=== PATIENT | female | born 1935 | race Caucasian/White ===

== ENCOUNTER 2016-12-20 19:35 | Emergency (ER) | payer MEDICARE, OTHER ==
--- NOTE | 2016-12-20 21:21 | ERNOTE ---
Lower Extremity HPI - General Lower Extremities Pain: hip: right - "numbness" Time Seen by Provider: 12/20/16 20:53 Source: patient Exam Limitations: no limitations - Immun/Allergies/Home Medications Immunizations: IMMUNIZATION HX Immunizations Up to Date Yes History of Influenza Vaccine No Hx Pneumococcal Vaccination No Allergies/Adverse Reactions: Allergies Allergy/AdvReac Type Severity Reaction Status Date / Time No Known Allergies Allergy Unverified 09/29/12 20:05 Home Medications: HOME MEDICATIONS Metoprolol Tartrate [Lopressor] 25 mg PO BID 09/29/12 [Last Taken 09/29/12 08:00 ] Lisinopril [Zestril] 20 mg PO DAILY #0 tablet 10/08/12 [Last Taken Unknown] Simvastatin [Zocor] 20 mg PO HS #0 tablet 10/08/12 [Last Taken Unknown] Cyanocobalamin (Vitamin B-12) [Vitamin B-12] 3,000 mcg PO DAILY 09/25/14 [Last Taken Unknown] - History of Present Illness Narrative: Pt states that she got out of her car earlier and had a little trouble controlling her right leg. She is able to walk and continued to walk and drive this afternoon. Occurred: this afternoon Location of Incident: other Method of Injury: Reports: twisted - at the time she noticed the problem but did not feel like there was any injury Associated Symptoms: Denies: snapping, popping sensation Other Injuries: Reports: none Subsequent Symptoms: Reports: sensory loss - subjective numbness in the right lateral iliac region Review of Systems - Review of Systems Constitutional: Absent: recent illness EYE: Present: no symptoms reported ENT: Present: no symptoms reported Respiratory: Absent: shortness of breath, cough Cardiology: Absent: chest pain, palpitations Gastrointestinal/Abdominal: Present: no symptoms reported Genitourinary: Present: no symptoms reported Musculoskeletal: Present: no symptoms reported Skin: Present: no symptoms reported Neurological: Present: weakness - right leg, numbness - right hip Endocrine: Present: no symptoms reported Hematologic/Lymphatic: Present: no symptoms reported Psych: Present: no symptoms reported - Patient's Past Medical History Patient History - Medical: Other Patient History - Cardiac/Respiratory: Hypertension, Hyperlipidemia, Myocardial Infarction, Peripheral Vascular Disease Patient History - Cancer: Melanoma, Skin Patient History - Surgical Procedures: Cataracts, Cardiac stent Patient History - Other: None - Social History Living Situations: alone Abuse History: No History of abuse Psych History: No pertinent hx Smoking Status: Current every day smoker Patient requests Smoking Cessation Consult: No Initiate information on Smoking Cessation: No Alcohol Use: rarely Drug Use: none - Immunizations Immunizations Up to Date: Yes Hx Pneumococcal Vaccination: No History of Influenza Vaccine: No Physical Exam - Physical Exam General Appearance: Present: wd/wn, alert, no apparent distress Neck: Present: normal inspection, supple Respiratory: Present: no respiratory distress, no accessory muscle use Extremity Exam: Present: normal inspection, non-tender, normal range of motion, no edema, other - both feet cool with vericositites. Unable to palpate pulses in right foot. Unable to find pulses with hand doppler. Cap refil 3-4 seconds Neurological Exam: Present: alert, oriented, normal mood/affect, no motor/ sensory deficits - Right leg strength slightly less than left but still 5/5 in all directions. Pt acts as though she has pain while doing muscle testing but she denies pain. Pt able to walk with assistance but does not have full stride on the right DTR: N=norm/NB=norm/brisk/A=abs/DD=dull/dimin/HC=hyperactive: Knee (R): Normal, Knee (L): Normal Skin Exam: Present: normal color - slighty ruborous, cool/dry ED Progress - Vital Signs Vital Signs: Vital Signs 12/20/16 19:35 Temperature 36.8 C Pulse Rate 81 Respiratory 24 H Rate Blood Pressure 174/72 O2 Sat by Pulse 98 Oximetry - X-Ray X-Ray #1 X-Ray: hip Interpretation: Interp. by me X-ray Comments: Right side: no fracture or dislocation. pelvis intact. - Progress/Reassessment Chief Complaint: Lower Extremity Pain/ Injury Progress Note-Subjective: 12/21/16 00:21 Called [facility], per patient request they no longer have vascular services. Called [facility] no vascular information engineer [facility]. Called [facility]: spoke with Dr. Ethel Galvan he would like the patient transferred [facility] and asks for a 5000 unit heparin bolus. There was no transfer center staff on the line after he hung up to finish transfer arrangements 12/21/16 00:42 Called the transfer center back to make transfer arrangements, spoke with Clementina , she spoke with the ED and they will accept for Dr. Galvan and consult him upon arrival. 12/21/16 03:12 Departure Clinical Impression: Peripheral vascular disease of lower extremity - Departure Disposition: [facility] Condition: Serious
[2016-12-21] MEDS ORDERED: HEPARIN SODIUM,PORCINE 5,000 UNITS/ML VIAL IV ONE (00:37)
[2016-12-21] MEDS ORDERED: HEPARIN SODIUM,PORCINE 5,000 UNITS/ML VIAL ONE (00:41)
[2016-12-21 00:48] VITALS: BP 138/76
--- OUTSIDE RECORDS SUMMARY | 2016-12-21 11:09 | XMS REPORT | Continuity of Care Document ---
:1935 Author Organization [facility] ([facility]) Address [address] [place] [address] Phone [phone] Care Team Providers Name Role Phone Britton Fulton Primary Care Provider [phone] Source Comments This disclosure is being made pursuant to the Care Everywhere program, applicable federal and state laws, and may not contain all informaitonavailable regarding this patient.[facility] ([facility]) Active Allergies and Adverse Reactions Allergen Noted Date Severity Reactions Comments Cotrim Double-Strength 02/11/2011 Urticaria (Hives) Current Medications Prescription Sig. Disp. Refills Start Date End Date Status aspirin 81 mg tablet Take 81 mg by Active mouth daily. lisinopril-hydrochlor Take 1 Tab by Active othiazide 20-12.5 mg mouth daily. per tablet simvastatin 20 mg Take 20 mg by Active tablet mouth every evening. furosemide 20 mg Take 1 Tab (20 90 Tab 3 12/11/2014 Active tablet mg total) by mouth daily metoPROLol tartrate Take 1 Tab (25 60 Tab 1 02/09/2015 Active 25 mg tablet mg total) by mouth 2 times daily potassium chloride Take 20 mEq by 12/21/2016 Discontinued (K-DUR, KLOR-CON M20) mouth 2 times 20 mEq tablet daily. Active Problems Problem Noted Date HTN (hypertension) 02/16/2011 Unspecified urinary incontinence 02/16/2011 Most Recent Encounters Date Type Specialty Providers Description 12/21/2016 Hospital Encounter Heart and Vascular Kaleb, Chief Comp: Patient MD Hilary Reported Reason For Visit 12/21/2016 Hospital Encounter Heart and Vascular [facility] Chief Comp: Patient MD Hilary Reported Reason For Visit 12/21/2016 Hospital Encounter Heart and Vascular [facility] Chief Comp: Patient MD Hilary Reported Reason For Visit 12/21/2016 Hospital Encounter Heart and Vascular [facility]aleb, Chief Comp: Patient MD Hilary Reported Reason For Visit 12/21/2016 Hospital Encounter Emergency Medicine Jerardo Luis Dx: Right leg MD Shirley numbness (Primary Tere Yee Dx) 12/21/2016 Telephone Srg Vascular Cole, Chief Comp: MD Doris Consultation 10/28/2016 Lab Requisition Pathology Lab Services, Dx: 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 Alcohol Use Drinks/Week oz/Week Comments Yes Occassional glass of wine. Last Filed Vital Signs Vital Sign Reading Time Taken Blood Pressure 157/73 12/21/2016 3:01 AM CDT Pulse 68 12/21/2016 2:46 AM CDT Temperature 36.7 C (98.1 F) 12/21/2016 2:46 AM CDT Respiratory Rate 18 12/21/2016 2:46 AM CDT Height - - Weight 61.689 kg (136 lb) 02/16/2011 2:00 PM CDT Body Mass Index - - Oxygen Saturation 99% 12/21/2016 3:01 AM CDT Plan of Care Health Maintenance Due Date Last Done Comments Hepatitis B Vaccine (1 of 3 - Primary Series) 1935 Tdap Vaccine 1944 Lipid Disorder Screening 1951 Td Vaccine 1951 Colonoscopy 1983 Zoster Vaccine 1993 Osteoporosis Screening (DXA Bone Density) 1998 Pneumococcal Vaccine (1 of 2 - PCV13) 1998 Influenza Vaccine: Seasonal (Season Ended) 2017 Results from Last [address] ANGIO ABD AORTA& BILAT ILIOFEM LOW EXT RUNOFF W/WO ([id number]) (12/21/2016 4:06 AM) Impressions Impression: 1. Extensive atherosclerotic disease, as detailed above. 2. Right atrial enlargement, incompletely imaged. Consider evaluation with echocardiography if this has not already been done. 3. Bilateral renal cysts. Left renal atrophy. Scarring in midpole of right kidney. This final report is in agreement with the critical and emergent preliminary findings reported by the radiology services manager distribution manager. Narrative Procedure: CT ANGIO ABD AORTA & BILAT ILIOFEM LOW EXT RUNOFF W/WO ([id number]) Indication:Reported right femoral arterial occlusion on external ultrasound. Right leg numbness and weakness. Technique: CT angiogram from abdominal aorta through the feet was performed with 100 cc of Isovue-370 IV contrast. 3D reconstructions were performed to better visualize the vascular anatomy. Comparison:None. Findings: Lower chest: Massively dilated right atrium, partially imaged. Abdominal Aorta:Patent, but with extensive atherosclerotic disease, plaque, calcification, ectasia and luminal irregularity. Celiac artery: High-grade ostial stenosis, reconstituted by SMA collaterals. Superior mesenteric artery: Patent. Inferior mesenteric artery: Patent. Right renal artery: Double and patent. Left renal artery: Double and patent. Right common iliac artery: Moderately diseased and calcified, but patent. Patent stent in distal vessel. Right external iliac artery: Mild proximal stenosis and mild to moderate distal stenosis, remainder is patent. Right internal iliac artery: Patent. Right common femoral artery: Patent. Left common iliac artery: Patent, but moderately diseased and calcified. Patent stent in distal vessel. Left external iliac artery: Patent. Left internal iliac artery: High-grade proximal stenosis. Left common femoral artery: Patent. Posterior calcified plaque. RIGHT Lower Extremity: Superficial femoral artery: Segmentally occluded at 6 cm distal to femoral bifurcation. Moderate to severe disease in mid and distal thigh. High-grade stenosis at adductor canal. Profunda femoral artery: High-grade ostial stenosis or occlusion, reconstitutes proximally. Popliteal artery: Patent, but small caliber. Tibioperoneal trunk: Patent. Anterior tibial artery: Patent, but attenuated distally (could be due to contrast bolus timing). Posterior tibial artery: Patent. Peroneal artery: Patent. LEFT Lower Extremity: Superficial femoral artery: Diseased proximally. Occludes 6 cm from femoral bifurcation. Reconstitutes at adductor canal. Profunda femoral artery: Patent. Popliteal artery: Reconstitutes at adductor canal, then patent. Tibioperoneal trunk: Patent. Anterior tibial artery: Patent. Crosses the ankle. Posterior tibial artery: Patent. Crosses the ankle. Peroneal artery: Ostial stenosis, then patent. Non vascular findings: The early arterial phase does not provide optimal imaging of the solid organs, bowel, or venous structures. Bibasilar linear atelectasis or scar. Right atrial enlargement, incompletely imaged. Extensive bilateral renal cysts, with right renal midpole parenchymal scarring. The left kidney is relatively atrophic. Nodular thickening of left adrenal. Probable duodenal diverticulum. Streak artifact from intramedullary oneil and screws in proximal left femur obscures adjacent structures. Marrow space in distal femurs and proximal tibia is shows patchy sclerosis and lucency. Degenerative changes in the spine. Anterolisthesis of L4 on L5. Procedure Note Osmar, Incoming Imaging Results - MonDecember 21, 2016 8:47 AM CDT Procedure: CT ANGIO ABD AORTA & BILAT ILIOFEM LOW EXT RUNOFF W/WO ([id number]) Indication: Reported right femoral arterial occlusion on external ultrasound. Right leg numbness and weakness. Technique: CT angiogram from abdominal aorta through the feet was performed with 100 cc of Isovue-370 IV contrast. 3D reconstructions were performed to better visualize the vascular anatomy. Comparison: None. Findings: Lower chest: Massively dilated right atrium, partially imaged. Abdominal Aorta: Patent, but with extensive atherosclerotic disease, plaque, calcification, ectasia and luminal irregularity. Celiac artery: High-grade ostial stenosis, reconstituted by SMA collaterals. Superior mesenteric artery: Patent. Inferior mesenteric artery: Patent. Right renal artery: Double and patent. Left renal artery: Double and patent. Right common iliac artery: Moderately diseased and calcified, but patent. Patent stent in distal vessel. Right external iliac artery: Mild proximal stenosis and mild to moderate distal stenosis, remainder is patent. Right internal iliac artery: Patent. Right common femoral artery: Patent. Left common iliac artery: Patent, but moderately diseased and calcified. Patent stent in distal vessel. Left external iliac artery: Patent. Left internal iliac artery: High-grade proximal stenosis. Left common femoral artery: Patent. Posterior calcified plaque. RIGHT Lower Extremity: Superficial femoral artery: Segmentally occluded at 6 cm distal to femoral bifurcation. Moderate to severe disease in mid and distal thigh. High-grade stenosis at adductor canal. Profunda femoral artery: High-grade ostial stenosis or occlusion, reconstitutes proximally. Popliteal artery: Patent, but small caliber. Tibioperoneal trunk: Patent. Anterior tibial artery: Patent, but attenuated distally (could be due to contrast bolus timing). Posterior tibial artery: Patent. Peroneal artery: Patent. LEFT Lower Extremity: Superficial femoral artery: Diseased proximally. Occludes 6 cm from femoral bifurcation. Reconstitutes at adductor canal. Profunda femoral artery: Patent. Popliteal artery: Reconstitutes at adductor canal, then patent. Tibioperoneal trunk: Patent. Anterior tibial artery: Patent. Crosses the ankle. Posterior tibial artery: Patent. Crosses the ankle. Peroneal artery: Ostial stenosis, then patent. Non vascular findings: The early arterial phase does not provide optimal imaging of the solid organs, bowel, or venous structures. Bibasilar linear atelectasis or scar. Right atrial enlargement, incompletely imaged. Extensive bilateral renal cysts, with right renal midpole parenchymal scarring. The left kidney is relatively atrophic. Nodular thickening of left adrenal. Probable duodenal diverticulum. Streak artifact from intramedullary oneil and screws in proximal left femur obscures adjacent structures. Marrow space in distal femurs and proximal tibia is shows patchy sclerosis and lucency. Degenerative changes in the spine. Anterolisthesis of L4 on L5. IMPRESSION Impression: 1. Extensive atherosclerotic disease, as detailed above. 2. Right atrial enlargement, incompletely imaged. Consider evaluation with echocardiography if this has not already been done. 3. Bilateral renal cysts. Left renal atrophy. Scarring in midpole of right kidney. This final report is in agreement with the critical and emergent preliminary findings reported by the radiology services manager distribution manager. DIFFERENTIAL (12/21/2016 3:01 AM) Component Value Range % Neutrophils-Auto Diff 66.0 % Neutrophils-Auto Diff 4380 1420-6322 /MM3 % Lymphocytes-Auto Diff 24.4 % Lymphocytes-Auto Diff 2999 339-7386 /MM3 % Monocytes-Auto Diff 8.0 % Monocytes-Auto Diff 530 130-860 /MM3 % Eosinophils-Auto Diff 0.3 % Eosinophils-Auto Diff 20(L) 40-390 /MM3 % Basophils 0.8 % Basophils-Auto Diff 50 10-136 /MM3 % Immature Granulocytes-Auto Diff 0.5 % Immature Granulocytes-Auto Diff 30 /MM3 Specimen Whole Blood CBC (COMPLETE BLOOD COUNT) (12/21/2016 3:01 AM) Component Value Range WBC Count 6.6 3.7-10.5 K/MM3 RBC Count 4.74 4.00-5.20 M/MM3 Hemoglobin 13.3 11.9-15.5 g/dL Hematocrit 40 35-47 % MCV (Mean Corpuscular Volume) 85 82-99 FL MCH (Mean Corpuscular Hemoglobin) 28 25-35 PG MCHC (Mean Corpuscular Hemoglobin Concentration) 33 32-36 % Platelet Count 124(L) 150-400 K/MM3 MPV (Mean Platelet Volume) 10.7 9.4-12.3 FL RBC Dist Width-STD 47.9(H) 36.4-46.3 FL RBC Distrib Width 15.4(H) 9.0-14.5 % Nucleated RBC 0 /100 WBC Specimen Whole Blood TYPE AND SCREEN (BLOOD TYPE(ABORH) AND RBC ANTIBODY SCREEN) (12/21/2016 3:01 AM ) Component Value Range ABORH O Positive Specimen Expiration Date 2016-12-24 Antibody Screen Negative Specimen Blood LACTIC ACID, WHOLE BLOOD ([facility]) (12/21/2016 3:01 AM) Component Value Range Lactic Acid, Whole Blood 1.0Comment: 0.5-2.0 mEq/L Glycolate, the principle toxic metabolite of ethylene glycol, can cause artifactual elevation of measured lactate. Specimen Whole Blood PTT (PARTIAL THROMBOPLASTIN TIME) (12/21/2016 3:01 AM) Component Value Range PTT 143(H) 22-31 secs Specimen Blood PT/INR (PROTHROMBIN TIME/INR) VENOUS (12/21/2016 3:01 AM) Component Value Range PT (Prothrombin Time) 12 9-12 secs INR 1.2 <4.0 Specimen Blood BASIC METABOLIC PANEL W/ CALCIUM (CHEM 8) (12/21/2016 3:01 AM) Component Value Range Sodium 140 135-145 mEq/L Potassium 3.9 3.5-5.0 mEq/L Chloride 104 95-107 mEq/L CO2 24 22-29 mEq/L BUN 18 10-20 mg/dL Creatinine 1.0Comment: 0.5-1.0 mg/dL Creatinine switched to enzymatic method on 11/30/2010.GFR equation switched to IDMS-traceable MDRD equation on 11/30/2010. Calculated GFR values are not valid in clinical settings where serum creatinine is changing. Glucose 93Comment: 65-99 mg/dL The Expert Committee on the Diagnosis and Classification of Diabetes has defined impaired fasting glucose as greater than or equal to 100 mg/dL but less than 126 mg/dL.(Diabetes Care 28 (Suppl 1)S41,2005) Calcium 8.7 8.5-10.5 mg/dL Anion Gap 12 <17 mEq/L Calculated GFR 53(L) >60 mL/min/1.73 m2 Specimen Blood CBC WITH DIFFERENTIAL (12/21/2016 3:01 AM) Specimen Whole Blood Narrative The following orders were created for panel order CBC WITH DIFFERENTIAL. Procedure Abnormality Status --------- ------ CBC (COMPLETE BLOOD COUNT)[[id number]] AbnormalFinal result DIFFERENTIAL[[id number]] AbnormalFinal result Please view results for these tests on the individual orders. DERMATOPATHOLOGY EXAM (10/26/2016 2:30 PM) Component Value Range Case Report Surgical Pathology Case: [id number] Authorizing Provider:[facility] Collected: 10/26/2016 02:30 PM Pathologist: Elan Ba MD Received:10/28/2016 01:41 PM Specimen:Skin, other, specify, R Hand Diagnosis Skin, right hand, shave biopsy: Epidermoid cyst. Clinical Information Tissue source/site: [id number] hand. Pertinent clinical history and findings: 1.3 cm subcutaneous cyst. Clinical differential diagnosis: Cyst. Gross Description A.Received in formalin, in a container labeled Talia Barnard, date of , and "R Hand", is a 1.5 x 1.1 cm wide unoriented fragment of juan skin that is 0.5 cm thick.The resection base is ink ed blue and the fragment is trisected to reveal a disrupted cyst.The cystic space is filled white, soft and lamellated material. Received separately in the container is a 1.5 x 1.1 x 0.1 cm fragme nt of the white soft material.The specimen is entirely submitted as follows: A1:Skin fragment, trisected A2:Separately received soft materia AJF/rls Microscopic Description Sections show a fragmented skin shave demonstrating a dermal-based, cystic structure containing lamellated keratinous material surrounded by thin squamous epithelial lining including a granular cell layer, transected at specimen base. Performed by:Abigail Choi MD, PhD, R2/rls I have personally reviewed this case and edited the report as necessary. Elan Ba MD Specimen Skin - Skin, other, specify
== END 2016-12-21 01:20 | disposition short-term general hospital (02) ==
LOC: ER 19:35
DX: I73.89 Other specified peripheral vascular diseases (principal); Z85.820 Personal history of malignant melanoma of skin; Z72.0 Tobacco use; I10 Essential (primary) hypertension; E78.5 Hyperlipidemia, unspecified; I25.2 Old myocardial infarction

== ENCOUNTER 2017-02-09 16:39 | Emergency (ER) | payer MEDICARE, OTHER ==
[2017-02-09 16:55] VITALS: BP 130/77
--- NOTE | 2017-02-09 18:03 | ERNOTE ---
Upper Extremity HPI - Narrative Date of Service: 02/09/17 - General Extremities Pain Location: forearm: left Time Seen by Provider: 02/09/17 17:44 Source: patient Exam Limitations: no limitations - Immun/Allergies/Home Medications Immunizations: IMMUNIZATION HX Immunizations Up to Date Yes History of Influenza Vaccine No Hx Pneumococcal Vaccination No Allergies/Adverse Reactions: Allergies Allergy/AdvReac Type Severity Reaction Status Date / Time No Known Allergies Allergy Unverified 09/29/12 20:05 Home Medications: HOME MEDICATIONS Lisinopril [Zestril] 20 mg PO DAILY #0 tablet 10/08/12 [Last Taken Unknown] Aspirin [Children's Aspirin] 81 mg PO DAILY 02/09/17 [Last Taken Unknown] Clopidogrel Bisulfate [Plavix] 37.5 mg PO DAILY 02/09/17 [Last Taken Unknown] Furosemide [Lasix] 20 mg PO 02/09/17 [Last Taken Unknown] Metoprolol Tartrate [Lopressor] 25 mg PO BID 02/09/17 [Last Taken Unknown] Ranitidine HCl [Zantac] 150 mg PO DAILY 02/09/17 [Last Taken Unknown] - History of Present Illness Narrative: Pt reports skin tear obtained from trimming brush. She is on Plavix and notes area bleeds when drsg not in place to area. Denies any wrist pain. Date (Duration): 02/08/17 Occurred: yesterday Location of Incident: home Loss of Consciousness: Reports: no loss of consciousness Modifying Factors - (Improves): Reports: other - dressings, pressure Review of Systems - Review of Systems Constitutional: Absent: fever, chills, fatigue Musculoskeletal: Absent: joint pain - no wrist pain, no FA pain Skin: Present: other - woudn to RFA - Patient's Past Medical History Patient History - Medical: Other Patient History - Cardiac/Respiratory: Hypertension, Hyperlipidemia, Myocardial Infarction, Peripheral Vascular Disease Patient History - Cancer: Melanoma, Skin Patient History - Surgical Procedures: Cataracts, Cardiac stent Patient History - Other: None - Social History Living Situations: home Abuse History: No History of abuse Psych History: No pertinent hx Smoking Status: Current every day smoker Have you smoked in the past 12 months: No Alcohol Use: rarely Drug Use: none - Immunizations Immunizations Up to Date: Yes Hx Pneumococcal Vaccination: No History of Influenza Vaccine: No Physical Exam - Physical Exam General Appearance: Present: wd/wn, alert, no apparent distress Respiratory: Present: no respiratory distress, normal breath sounds, lungs clear. Absent: rales, rhonchi, wheezing Extremity Exam: Present: non-tender - R. wrist, normal range of motion - R. wrist Skin Exam: Present: normal color, warm/dry, other - 0.25cm skin tear, scant bloody oozing to area, ecchymosis to R. FA ED Progress - Vital Signs Patient's Vital Signs:: I have reviewed the patient's vital signs. Vital Signs: Vital Signs 02/09/17 16:50 Temperature 36.5 C Pulse Rate 76 Respiratory 16 Rate Blood Pressure 130/77 O2 Sat by Pulse 95 Oximetry - Progress/Reassessment Chief Complaint: Upper Extremity Injury/Problem Progress:: Improved Procedures Date and Time: 02/09/17 17:50- Surgical applied to skin tear. Pt tolerated well._CY 02/09/17 18:10- Rechecked site, bleeding stopped. Mepilex border applied._CY Departure Clinical Impression: Skin tear of forearm without complication Qualifiers: Encounter type: initial encounter Laterality: right Qualified Code(s): S51.811A - Laceration without foreign body of right forearm, initial encounter - Departure Disposition: Home self-care Condition: Good Additional Instructions: Keep dressing in place for 1 week, then may remove. Keep dressing clean and dry After 1 week, may wash area with soap and water Seek re-evaluation if you develop warmth, redness or increased pain to the area Referrals: Stefanie Arredondo DO [Primary Care Provider] -
== END 2017-02-09 18:14 | disposition home or self-care (01) ==
LOC: ER 16:39
DX: S51.811A Laceration without foreign body of right forearm, initial encounter (principal); W45.8XXA Other foreign body or object entering through skin, initial encounter; W22.8XXA Striking against or struck by other objects, initial encounter; Y93.H2 Activity, gardening and landscaping; Y92.007 Garden or yard of unspecified non-institutional (private) residence as the place of occurrence of the external cause

== ENCOUNTER 2017-06-12 15:44 | Observation (INO) | payer MEDICARE, OTHER ==
[2017-06-12 16:48] LABS: Hematocrit 44.1 % (37.0-47.0); Hemoglobin 14.6 gm/dL (12.5-16.0); Mean Cell Volume 85.3 fl (78-100); Mean Corpuscular Hemoglobin 28.2 pg (27-31); Mean Corpuscular Hgb Conc 33.1 g/dl (32-36); Mean Platelet Volume 10.6 fl (6.0-9.5); Neutrophil # 6.2 K/mm3 (1.3-6.0); Neutrophil % 79.9 % (42-75.0); Platelet Count 183 K/mm3 (150-450); Red Blood Count 5.17 M/mm3 (4.2-5.4); Red Cell Distribution Width 16.1 % (11.5-14.0); White Blood Count 7.7 K/mm3 (4.0-10.5)
[2017-06-12 17:11] LABS: Troponin I 0.032 ng/ml (0.00-0.10)
[2017-06-12 17:16] LABS: Albumin * 3.7 gm/dl (3.4-5.0); Anion Gap 15.8 mmol/L (6.8-13.8); Bilirubin, Total 1.4 mg/dL (0.0-1.1); Ca. Corrected For Albumin 9.4 mg/dL (8.4-10.2); Calcium * 9.5 mg/dL (7.9-10.9); Carbon Dioxide 27.7 mmol/L (24-32.6); Potassium 3.5 mmol/L (3.4-4.6); Total Protein 7.5 gm/dL (6.2-8.2)
[2017-06-12] MEDS ORDERED: FUROSEMIDE 10 MG/ML VIAL IV ONE ×2 (17:22→19:04)
[2017-06-12] MEDS ORDERED: FUROSEMIDE 10 MG/ML VIAL ONE (17:28)
--- NOTE | 2017-06-12 17:37 | ERNOTE ---
Dyspnea - Date Date of Service: 06/12/17 - General Presenting Symptoms: shortness of breath Time Seen by Provider: 06/12/17 15:50 Source: patient Exam Limitations: no limitations - Immun/Allergies/Home Medications Immunizations: IMMUNIZATION HX Immunizations Up to Date Yes History of Influenza Vaccine Yes Hx Pneumococcal Vaccination Yes Allergies/Adverse Reactions: Allergies No Known Allergies Allergy (Verified 06/12/17 15:56) Home Medications: HOME MEDICATIONS Aspirin [Children's Aspirin] 81 mg PO DAILY 02/09/17 [Last Taken Unknown] Furosemide [Lasix] 20 mg PO DAILY 02/09/17 [Last Taken Unknown] Metoprolol Tartrate [Lopressor] 25 mg PO BID 02/09/17 [Last Taken Unknown] Ranitidine HCl [Zantac] 150 mg PO DAILY 02/09/17 [Last Taken Unknown] Lisinopril/Hydrochlorothiazide [Lisinopril-Hctz 20-12.5 mg Tab] 1 each PO DAILY 06/12/17 [Last Taken Unknown] Simvastatin 20 mg PO DAILY 06/12/17 [Last Taken Unknown] - History of Present Illness Narrative: Patient presents to the ED for trouble breathing. She has notices increased ankle swelling and trouble breathing throughout the day today. Getting worse throughout the day. No CP. SOB worse with exertion, better with rest. Has not seen anyone else for this. No cough or fever. No pleuritic pain. No recent changes in medications. Severity: moderate Treatment PARA OPERATOR: other - home meds Initiating event: Denies: upper resp illness, out of meds Frequency of episodes: Reports: no prior episodes Modifying Factors - (Improves): Reports: rest Modifying Factors (Worsens): Reports: activity Associated Symptoms-Dyspnea: Reports: ankle/leg swelling. Denies: fever/chills , chest pain/discomfort, cough, wheezing Prior Treatment: Denies: recently seen Review of Systems - Review of Systems Constitutional: Absent: fever Respiratory: Present: shortness of breath Cardiology: Absent: chest pain Gastrointestinal/Abdominal: Absent: abdominal pain All Other Systems: All systems neg except as marked - Patient's Past Medical History Patient History - Medical: Other Patient History - Cardiac/Respiratory: Hypertension, Hyperlipidemia, Myocardial Infarction, Peripheral Vascular Disease Patient History - Cancer: Melanoma, Skin Patient History - Surgical Procedures: Cataracts, Cardiac stent Patient History - Other: None LMP (females 10-50): post - Social History Living Situations: home Abuse History: No History of abuse Psych History: No pertinent hx Smoking Status: Current every day smoker Alcohol Use: none Drug Use: none - Immunizations Immunizations Up to Date: Yes Hx Pneumococcal Vaccination: Yes History of Influenza Vaccine: Yes Physical Exam - Physical Exam General Appearance: Present: alert, no apparent distress Head Exam: Present: normal inspection, no evidence of injury Eye Exam: Normal inspection: bilateral, PERRL: bilateral Ears, Nose, Throat: Present: normal ENT inspection Neck: Present: normal inspection, nontender Respiratory: Present: lungs clear, other - mild tachypnea. no wheezing. Cardiovascular/Chest: Present: regular rate, rhythm, normal peripheral pulses Gastrointestinal/Abdominal: Present: normal bowel sounds, nontender, nondistended, soft Back Exam: Absent: CVA tenderness (R), CVA tenderness (L) Extremity Exam: Present: normal inspection, other - bilateral edema. No DVT findings Neurological Exam: Present: alert, normal mood/affect, no motor/sensory deficits , other - generalized weakness noted Skin Exam: Present: normal color, warm/dry ED Progress - Results and Orders Patient's Lab Results:: I have reviewed the patient's lab results. - Vital Signs Patient's Vital Signs:: I have reviewed the patient's vital signs. Vital Signs: Vital Signs 06/12/17 06/12/17 06/12/17 15:51 16:30 16:52 Temperature 36.4 C L Pulse Rate 88 78 77 Respiratory 25 H 17 Rate Blood Pressure 154/92 106/83 O2 Sat by Pulse 100 97 Oximetry 06/12/17 06/12/17 17:05 17:26 Temperature Pulse Rate 80 77 Respiratory 17 15 Rate Blood Pressure 106/63 124/73 O2 Sat by Pulse 99 99 Oximetry - EKG EKG: NSR EKG read: Interp. by me EKG Comments: NSR PACs. Non-specific ST/T wave changes, no STEMI. - X-Ray X-Ray #1 X-Ray: chest Interpretation: Interp. by me X-ray Comments: CHF. No real-time radiology reads at this time. - Progress/Reassessment Chief Complaint: Dyspnea Progress Note-Subjective: 06/12/17 17:36 IV lasix given. Clinically doubt PE or aortic dissection. D/W Dr Weiss , will admit IV lasix and hold on CT chest at this time. Pt agreeable. Departure Clinical Impression: SOB (shortness of breath), CHF (congestive heart failure) - Departure Disposition: [facility] Condition: Stable
--- NOTE | 2017-06-12 19:01 | HP ---
Chief Complaint - Chief Complaint Date of Service: 06/12/17 Time of Service: 18:53 Chief Complaint: SOB History of Present Illness: This is an 81 y/o woman with fair memory at best who presented to the ED for trouble breathing. She noticed increased ankle swelling and trouble breathing throughout the day today. It worsened throughout the day. No CP, but the SOB was worse with exertion, better with rest. Has not seen anyone else for this. No cough or fever. No pleuritic pain. No recent changes in medications. Her last echo was 2 and 1/2 years ago. She continues to smoke. - Patient's Past Medical History Patient History - Cardiac/Respiratory: Hypertension, Hyperlipidemia, Myocardial Infarction, Peripheral Vascular Disease Patient History - Cancer: Melanoma, Skin Patient History - Surgical Procedures: Cataracts, Cardiac stent Patient History - Other: None LMP (females 10-50): post - Social History Living Situations: home Abuse History: No History of abuse Psych History: No pertinent hx Smoking Status: Current every day smoker Alcohol Use: none Drug Use: none - Immunizations Immunizations Up to Date: Yes Hx Pneumococcal Vaccination: Yes History of Influenza Vaccine: Yes Review Of Systems (GEN) - Review of Systems Generalized/Overall Review: Present: Weakness, Malaise EENTM: Present: No Symptoms Reported Respiratory: Present: Shortness of Breath Cardiac: Present: Edema Abdominal: Present: No Symptoms Reported Genitourinary: Present: No Symptoms Reported Musculoskeletal: Present: No Symptoms Reported Neurological: Present: No Symptoms Reported Skin: Present: No Symptoms Reported Endocrine: Present: No Symptoms Reported Misc: All systems neg except as marked Immunizations: IMMUNIZATION HX Immunizations Up to Date Yes History of Influenza Vaccine Yes Hx Pneumococcal Vaccination Yes Allergies/Adverse Reactions: Allergies Allergy/AdvReac Type Severity Reaction Status Date / Time No Known Allergies Allergy Verified 06/12/17 15:56 Home Medications: HOME MEDICATIONS Aspirin [Children's Aspirin] 81 mg PO DAILY 02/09/17 [Last Taken Unknown] Furosemide [Lasix] 20 mg PO DAILY 02/09/17 [Last Taken Unknown] Metoprolol Tartrate [Lopressor] 25 mg PO BID 02/09/17 [Last Taken Unknown] Ranitidine HCl [Zantac] 150 mg PO DAILY 02/09/17 [Last Taken Unknown] Lisinopril/Hydrochlorothiazide [Lisinopril-Hctz 20-12.5 mg Tab] 1 each PO DAILY 06/12/17 [Last Taken Unknown] Simvastatin 20 mg PO DAILY 06/12/17 [Last Taken Unknown] Exam - Exam Vital Signs: Vital Signs - Last Taken Selected Entries 06/12/17 06/12/17 17:26 17:58 Pulse Rate 77 77 Respiratory 15 Rate Blood Pressure 124/73 124/75 O2 Sat by Pulse 99 Oximetry Oxygen Delivery Nasal Cannula Method Oxygen Flow 2 Rate Constitutional: Present: Alert, Oriented x3, Cooperative, Other - poor memory ENT Exam: Present: normal ENT inspection, hearing grossly normal Neck: Present: normal inspection Respiratory: Present: rales Cardiovascular/Chest: Present: regular rate, rhythm, systolic murmur Abdomen: Present: Normal bowel sounds, soft, nontender, nondistended, no rebound tenderness, no hepatospenomegaly, no masses Extremity: Present: pedal edema Skin Exam: Present: normal color, no cyanosis, cool/dry Neurologic: Present: alert, oriented x 3 Appearance: Present: appropriate appearance, neat Eye contact: Present: cooperative Diagnostic Studies: Laboratory Results WBC 7.7 K/mm3 (4.0-10.5) 06/12/17 16:30 RBC 5.17 M/mm3 (4.2-5.4) 06/12/17 16:30 Hgb 14.6 gm/dL (12.5-16.0) 06/12/17 16:30 Hct 44.1 % (37.0-47.0) 06/12/17 16:30 MCV 85.3 fl (78-100) 06/12/17 16:30 MCH 28.2 pg (27-31) 06/12/17 16:30 MCHC 33.1 g/dl (32-36) 06/12/17 16:30 RDW 16.1 % (11.5-14.0) H 06/12/17 16:30 Plt Count 183 K/mm3 (150-450) 06/12/17 16:30 MPV 10.6 fl (6.0-9.5) H 06/12/17 16:30 Immature Gran % (Auto) 0.40 % (0.001-0.429) 06/12/17 16:30 Immature Gran # (Auto) 0.03 K/mm3 (0.000-0.0310) 06/12/17 16:30 Neutrophils % 79.9 % (42-75.0) H 06/12/17 16:30 Lymphocytes % 11.7 % (20-51) L 06/12/17 16:30 Monocytes % 7.2 % (0.0-9) 06/12/17 16:30 Eosinophils % 0.3 % (0.0-3.0) 06/12/17 16:30 Basophils % 0.5 % (0.0-1.0) 06/12/17 16:30 Nucleated RBC % 0.0 k/mm3 (0-1) 06/12/17 16:30 Neutrophils # 6.2 K/mm3 (1.3-6.0) H 06/12/17 16:30 Lymphocytes # 0.9 k/mm3 (1.5-3.5) L 06/12/17 16:30 Monocytes # 0.6 k/mm3 (0.0-1.0) 06/12/17 16:30 Eosinophils # 0.0 k/mm3 (0.0-0.7) 06/12/17 16:30 Absolute Basophils 0.0 k/mm3 (0.0-0.1) 06/12/17 16:30 D-Dimer 3.95 mg/L (0.19-0.49) H 06/12/17 16:30 Sodium 140 mmol/L (132-142) 06/12/17 16:30 Plasma Sodium 140 mmol/L (130-142) 06/12/17 16:30 Potassium 3.5 mmol/L (3.4-4.6) 06/12/17 16:30 Chloride 100 mmol/L (97-106) 06/12/17 16:30 Carbon Dioxide 27.7 mmol/L (24-32.6) 06/12/17 16:30 Anion Gap 15.8 mmol/L (6.8-13.8) H 06/12/17 16:30 BUN 19 mg/dL (3-23) 06/12/17 16:30 Creatinine 1.19 mg/dL (0.4-1.4) 06/12/17 16:30 Est GFR (Non-Af Amer) 46 mL/min (60-130) L 06/12/17 16:30 BUN/Creatinine Ratio 16.0 (9.0-21.6) 06/12/17 16:30 Random Glucose 94 mg/dL (70-110) 06/12/17 16:30 Lactic Acid, Venous 2.3 mmol/L (0.4-1.9) H* 06/12/17 16:30 Calcium 9.5 mg/dL (7.9-10.9) 06/12/17 16:30 Calcium Adj for Albumin 9.4 mg/dL (8.4-10.2) 06/12/17 16:30 Total Bilirubin 1.4 mg/dL (0.0-1.1) H 06/12/17 16:30 AST 31 U/L (0-48) 06/12/17 16:30 ALT 28 U/L (19-67) 06/12/17 16:30 Alkaline Phosphatase 107 U/L (50-170) 06/12/17 16:30 Troponin I 0.032 ng/ml (0.00-0.10) 06/12/17 16:30 B-Natriuretic Peptide 45764 pg/mL (5-550) H 06/12/17 16:30 Total Protein 7.5 gm/dL (6.2-8.2) 06/12/17 16:30 Albumin 3.7 gm/dl (3.4-5.0) 06/12/17 16:30 Assessment/Plan - Narrative Narrative: vAni. Repeat Echo. Follow labs. - Assessment/Plan (1) CHF (congestive heart failure) Problem: Acute (2) SOB (shortness of breath) Problem: Acute
[2017-06-12] MEDS: METOPROLOL TARTRATE 25 MG TABLET PO SCH (20:33)
[2017-06-13 06:37] LABS: Anion Gap 12.1 mmol/L (6.8-13.8); BUN/Creatinine Ratio 17.7 (9.0-21.6); Calcium * 8.9 mg/dL (7.9-10.9); Carbon Dioxide 31.9 mmol/L (24-32.6); Estimated Creat Clear 28.5
[2017-06-13] MEDS: METOPROLOL TARTRATE 25 MG TABLET PO SCH (08:23)
[2017-06-13] MEDS ORDERED: SIMVASTATIN 20 MG TABLET PO SCH ×2 (09:00→21:00)
[2017-06-13] MEDS ORDERED: FAMOTIDINE 20 MG TABLET PO SCH (09:00)
[2017-06-13] MEDS ORDERED: FUROSEMIDE 10 MG/ML VIAL IV SCH ×2 (09:00)
[2017-06-13] MEDS ORDERED: LISINOPRIL 20 MG TABLET PO SCH (09:00)
[2017-06-13] MEDS ORDERED: ASPIRIN 81 MG TAB.CHEW PO SCH (09:00)
[2017-06-13] MEDS ORDERED: HYDROCHLOROTHIAZIDE 25 MG TABLET PO SCH (09:00)
[2017-06-13] MEDS: POTASSIUM CHLORIDE 20 MEQ TABLET.SA PO SCH ×2 (10:34→14:08)
--- NOTE | 2017-06-13 13:37 | PN ---
Subjective - Date and Time Seen Date: 06/13/17 Time: 13:34 Subjective Narrative: A little better, but still SOB Objective - Review of Systems Generalized/Overall Review: Reports: Malaise EENTM: Reports: No Symptoms Reported Respiratory: Reports: Cough, Shortness of Breath Cardiac: Reports: Palpitations Abdominal: Reports: No Symptoms Reported Genitourinary Symptoms: Reports: No Symptoms Reported Musculoskeletal Complaints: Reports: No Symptoms Reported Neurological: Reports: No Symptoms Reported Skin: Reports: No Symptoms Reported Endocrine: Reports: No Symptoms Reported Misc: All systems neg except as marked - Vitals Vitals: Last Vital Signs Selected Entries 06/13/17 11:50 Temperature 36.8 C Temperature Temporal Artery Source Scan Pulse Rate 66 Respiratory 16 Rate Blood Pressure 146/74 Blood Pressure Sitting Position O2 Sat by Pulse 100 Oximetry Oxygen Delivery Room Air Method - Abnormal Lab Findings Abnormal Lab Findings: Abnormal Lab Results 06/12/17 06/13/17 06/13/17 Range/Units 19:30 05:40 10:17 Potassium 3.0 L (3.4-4.6) mmol/L Est GFR (Non-Af Amer) 49 L (60-130) mL/min Lactic Acid, Venous 2.3 H* (0.4-1.9) mmol/L Vitamin B12 Greater than 2000 H (193-986) pg/mL - Exam Constitutional: Present: Alert, Oriented x3, Cooperative, Well developed, Well nourished ENT Exam: Present: normal ENT inspection, hearing grossly normal Neck: Present: normal inspection Respiratory: Present: normal breath sounds, no respiratory distress Cardiovascular/Chest: Present: regular rate, rhythm, no chest tenderness Abdomen: Present: Normal bowel sounds, soft, nontender, nondistended, no hepatospenomegaly, no masses Extremity: Present: lower extremity edema Skin Exam: Present: normal color, warm/dry, no cyanosis Neurologic: Present: alert, oriented x 3 Appearance: Present: appropriate appearance, appropriate insight, neat Eye contact: Present: cooperative, good eye contact, normal speech Thoughts: Present: normal thought pattern Assessment/Plan Plan Narrative: fOLLO LABS. CONTINUE LASIX. - Problems/Diagnosis (1) CHF (congestive heart failure) Problem: Acute (2) SOB (shortness of breath) Problem: Acute
[2017-06-13] MEDS ORDERED: CALCIUM CARBONATE 500 MG TAB.CHEW PO PRN (15:05)
[2017-06-13 15:08] VITALS: BP 141/75
[2017-06-13] MEDS ORDERED: ALBUTEROL SULFATE 2.5 MG/0.5 ML VIAL.NEB IH PRN (15:21)
[2017-06-13] MEDS: MAGNESIUM OXIDE 400 MG TABLET PO SCH ×2 (15:22→15:59)
--- NOTE | 2017-06-13 16:49 | DS ---
(1) HFrEF (heart failure with reduced ejection fraction) Problem: Acute (2) Pulmonary arterial hypertension Problem: Chronic (3) Hypertension Problem: Acute Qualifiers: Hypertension type: essential hypertension Qualified Code(s): I10 - Essential (primary) hypertension (4) Femur fracture, left Diagnosis(s): LT peritrochanteric hip fracture - closed reduction and cephalo-medullary fixation of LT peritrochanteric femur fracture 09/2012. Problem: Inactive Qualifiers: Fracture type: closed Description of Stay: DATE OF ADMISSION: 06/12/17. DATE OF DISCHARGE: 06/13/17. DIAGNOSTICS: TTE. 06/13/17. Talia Is a 81-year-old WF with a history of HTN, CHF, severe pulmonary HTN, LT hip fracture [2012]who came into the ER due to sob difficulty in breathing, swelling in her lower extremities from last few days. She denies having any chest discomfort. CXR PA/lateral on 06/12/17 showed mild cardiomegaly, minimal pulmonary vascular cephalization and subtle interstitial thickening suggestive of mild CHF exacerbation. Significant labs: Troponin I 0.032, BNP 22978. EKG was nonacute. She was given furosemide 120 mg IV x1 with adequate diuresis and good urine output. Echocardiogram on 06/13/17: Mild concentric LVH with EF 34%; mod. global hypokinesis and mild dilatation of LV; severe biatrial enlargement RT > LT; severe TR with RVSP at 95 mm Hg; Trace PI; Mild MR. Based on the echocardiogram findings, the following medication changes were made : Carvedilol 3.125 mg twice a day, lisinopril 5 mg daily twice a day, furosemide 40 mg daily at noon, spironolactone 25 mg daily at noon. The following medications were discontinued: Lisinopril 20 mg daily, metoprolol 25 mg twice a day, furosemide 20 mg daily. May consider O2 at bedtime. Follow-up with PCP on 06/19/17. Procedures Performed: none Results and Findings: Laboratory Tests 06/12/17 16:30 WBC 7.7 Hgb 14.6 Hct 44.1 Plt Count 183 06/12/17 06/13/17 16:30 05:40 Plasma Sodium 140 142 Potassium 3.5 3.0 L Chloride 100 101 Carbon Dioxide 27.7 31.9 BUN 19 20 Creatinine 1.19 1.13 Est GFR (Non-Af Amer) 46 L 49 L Random Glucose 94 Lactic Acid, Venous 2.3 H Calcium Adj for Albumin 9.4 Total Bilirubin 1.4 H AST 31 ALT 28 Alkaline Phosphatase 107 Total Protein 7.5 Albumin 3.7 06/12/17 16:30 Troponin I 0.032 B-Natriuretic Peptide 54323 H Discharge Disposition: Home self care Disposition: Home self-care Condition: Undetermined Discharge Activity: Activity as tolerated Discharge Diet: Low salt, High Fiber Referrals: Stefanie Arredondo DO [Primary Care Provider] - Problem Oriented Discharge Instructions to Patient/Family: Heart Failure, Easy- to-Read Additional Patient Instructions (free text): NEW MEDS/NEW DOSES: 1. Lisinopril 5 mg twice a day. 2. Carvedilol 3.125 mg twice a day. 3. Furosemide 40 mg at noon. 4. Spironolactone 25 mg at noon. 5. Vitamin D3 2000 units at noon. 6. Tums 500 mg twice a day. MEDS DC'D: 1. Lisinopril 20 mg daily. 2. Metoprolol 25 mg twice a day 3. Furosemide 20 mg daily. 4. Tums 500 mg 4 times a day. Follow-up with Dr. Arredondo on 06/19/17 with CMP 2 hours done before visit. [facility] will call you tomorrow with follow up appointment. Weigh yourself daily in the morning. Call PCP/office a few gain more than 2-3 pounds in 1-2 days. Please give patient a list of high salt foods to avoid. Simvastatin should be taken with evening meal. [facility], please call and fax discharge information. Prescriptions (Any new or edited meds): Carvedilol [Coreg] 3.125 mg PO BID #60 tab Cholecalciferol (Vitamin D3) [Vitamin D] 2,000 unit PO DAILY@1200 #100 capsule Furosemide [Lasix] 40 mg PO DAILY@1200 #30 tablet Lisinopril 5 mg PO BID #60 tablet Spironolactone [Aldactone] 25 mg PO DAILY@1200 #30 tablet Complete Home Medications List: Complete Home Medication List: Aspirin [Children's Aspirin] 81 mg PO DAILY 02/09/17 Ranitidine HCl [Zantac] 150 mg PO DAILY 02/09/17 Albuterol Sulfate [Proair Hfa] 1 - 2 puff IH Q4H PRN 06/12/17 Simvastatin 20 mg PO DAILY 06/12/17 Calcium Carbonate [Tums] 500 mg PO BID PRN tab.chew 06/13/17 Carvedilol [Coreg] 3.125 mg PO BID #60 tab 06/13/17 Cholecalciferol (Vitamin D3) [Vitamin D] 2,000 unit PO DAILY@1200 #100 capsule 06/13/17 Furosemide [Lasix] 40 mg PO DAILY@1200 #30 tablet 06/13/17 Lisinopril 5 mg PO BID #60 tablet 06/13/17 Spironolactone [Aldactone] 25 mg PO DAILY@1200 #30 tablet 06/13/17 Amb Orders for Discharge: Comprehensive Metabolic Panel Time Frame: 06/19/17, Location: Determined By Patient
[2017-06-13] MEDS ORDERED: MIRTAZAPINE 15 MG TABLET PO SCH (21:00)
--- NOTE | 2017-06-19 12:32 | ECHO ---
This report is available in the EMR
== END 2017-06-13 17:49 | disposition home health service (06) ==
LOC: ER 15:44 → MS 17:30
PROVIDERS: ADMIT Allergy & Immunology; ATTEND Internal Medicine
DX: I50.23 Acute on chronic systolic (congestive) heart failure (principal); I10 Essential (primary) hypertension; E78.5 Hyperlipidemia, unspecified; I73.9 Peripheral vascular disease, unspecified; F17.210 Nicotine dependence, cigarettes, uncomplicated
CPT/HCPCS: 36415; 71020; 80048; 80053; 82607; 83605; 83880; 84484; 85025; 85379; 93005; 93306; 96374; 96376; 99285; G0378

== ENCOUNTER 2019-10-22 09:00 | Inpatient (IN) ==
[2019-10-22] MEDS ORDERED: FUROSEMIDE 10 MG/ML VIAL IV ONE (09:20)
[2019-10-22 09:50] LABS: Hematocrit 46.2 % (37.0-47.0); Hemoglobin 14.2 gm/dL (12.5-16.0); Mean Cell Volume 93.1 fl (78-100); Mean Corpuscular Hemoglobin 28.6 pg (27-31); Mean Corpuscular Hgb Conc 30.7 g/dl (32-36); Mean Platelet Volume 11.4 fl (8-12.5); Neutrophil # 14.4 K/mm3 (1.3-6.0); Neutrophil % 89.8 % (42-75.0); Platelet Count 130 K/mm3 (150-450); Red Blood Count 4.96 M/mm3 (4.2-5.4); Red Cell Distribution Width 15.9 % (11.5-14.0)
--- NOTE | 2019-10-22 09:53 | ERNOTE ---
Dyspnea - Date Date of Service: 10/22/19 - General Presenting Symptoms: shortness of breath, difficulty of breathing Time Seen by Provider: 10/22/19 09:08 Source: patient, EMS, EMS notes reviewed Exam Limitations: clinical condition - Immun/Allergies/Home Medications Immunizations: IMMUNIZATION HX Immunizations Up to Date No History of Influenza Vaccine No Hx Pneumococcal Vaccination No Allergies/Adverse Reactions: Allergies No Known Allergies Allergy (Verified 10/22/19 09:12) Home Medications: HOME MEDICATIONS Albuterol Sulfate [Proair Hfa] 1 - 2 puff INHALATION Q4H PRN 06/12/17 [Last Taken Unknown] mineral oil-hydrophil petrolat 1 applic TP BID #50 g 05/09/18 [Last Taken Unknown] triamcinolone acetonide 0.1 % topical ointment 1 applic TP BID #430 g 05/09/18 [Last Taken Unknown] furosemide 20 mg tablet 20 mg PO DAILY #30 tab 05/02/19 [Last Taken Unknown] aspirin 81 mg tablet,delayed release 81 mg PO DAILY #30 tab 05/22/19 [Last Taken Unknown] cholecalciferol (vitamin D3) 50 mcg (2,000 unit) capsule 2,000 unit PO DAILY #30 cap 05/22/19 [Last Taken Unknown] Lisinopril [Prinivil] 10 mg PO DAILY 10/22/19 [Last Taken Unknown] Spironolactone [Aldactone] 25 mg PO DAILY 10/22/19 [Last Taken Unknown] - History of Present Illness Narrative: patient presents to ed with c/o dyspnea, known hx of copd and chf, also c/o abdominal pain, patient for last 2 months has refused meds, remains a dnr Severity: moderate 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 Frequency of episodes: Reports: frequent episodes Modifying Factors - (Improves): Reports: nothing Modifying Factors (Worsens): Reports: nothing Associated Symptoms-Dyspnea: Reports: wheezing, leg/calf pain, ankle/leg swelling, dizziness, lightheadedness, weakness Review of Systems - Review of Systems Constitutional: Present: See HPI, weakness, fatigue, malaise EYE: Present: no symptoms reported ENT: Present: no symptoms reported Respiratory: Present: See HPI, shortness of breath, orthopnea, wheezing Cardiology: Present: See HPI, chest pain Gastrointestinal/Abdominal: Present: no symptoms reported Genitourinary: Present: no symptoms reported Musculoskeletal: Present: no symptoms reported Skin: Present: no symptoms reported Neurological: Present: no symptoms reported Endocrine: Present: no symptoms reported Hematologic/Lymphatic: Present: no symptoms reported Psych: Present: no symptoms reported All Other Systems: All systems neg except as marked Medical History (Last Reviewed 10/22/19 @ 09:12 by Charity Cm RN) Tobacco abuse (Chronic) Onset Date: 05/09/16 Systolic heart failure secondary to coronary artery disease (Chronic) Onset Date: 05/09/16 Pulmonary HTN (Chronic) Onset Date: 05/09/16 Severe per Cardiology. 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 Myocardial infarction of anterior wall (Chronic) Onset Date: 05/09/16 - PCI with RENNY to LAD anterior ST elevation PR Mild concentric left ventricular hypertrophy (LVH) (Chronic) Onset Date: 06/14/17 EF 34%, LA severely dilated, Bi-atrial enlargement, Rt atrium severely dilated, diastolic dysfunction, mild MR, RVSP 95 mm HG, Echo, FMCH 06/13/17 Hyperlipidemia (Chronic) Onset Date: Unknown GERD (gastroesophageal reflux disease) (Chronic) Onset Date: 05/09/16 Essential hypertension (Chronic) Onset Date: 05/07/17 Ischemic cardiomyopathy (Chronic) Onset Date: Unknown Echo EF .40 CAD (coronary artery disease) (Chronic) Onset Date: 05/09/16 Cataract Onset Date: Unknown Closed left ankle fracture Onset Date: Unknown Closed left femoral fracture Onset Date: 09/29/12 Encopresis Onset Date: Unknown Fracture of left radius Onset Date: Unknown (alone), unspecified part, closed Urge incontinence Onset Date: Unknown Surgical History: Surgical History (Last Reviewed 10/22/19 @ 09:12 by Charity Cm RN) Femoral oneil placement, left Onset Date: 09/30/12 Femoral-popliteal vascular bypass Onset Date: ~2005 Dr. Sukh Bernard of cardiac catheterization Onset Date: 09/25/14 Complex distal LAD occlusion s/p thrombolytic therapy, promus 2.5 x 16mm RENNY to mid-distal LAD with diffuse disease with DEMARCUS-II flow post-stent for salvage therapy, mildly elevated LVEDP. Hx of colonoscopy Onset Date: 05/18/07 Stent placement Onset Date: ~2005 Bilateral iliac stents Family History: Family History (Last Reviewed 10/22/19 @ 09:12 by Charity Cm RN) Brother Heart valve surgery Father , Old age No problems noted. Mother , Old age No problems noted. Daughter Heart valve problem Social History: (Last Reviewed 10/22/19 @ 09:12 by Charity Cm RN) Social History: Marital status: / lives independently: Yes current occupational status: retired Highest education level completed: high school graduate Service: No Tobacco: Smoking Status: Current every day smoker Alcohol: alcohol intake: current details: Some day - Occasionally wine Dietary Habits: caffeine: Yes caffeine comment: Every day Physical Exam - Physical Exam General Appearance: Present: moderate distress, anxious Head Exam: Present: normal inspection, no evidence of injury Eye Exam: Normal inspection: bilateral, PERRL: bilateral, EOMI: bilateral Ears, Nose, Throat: Present: normal ENT inspection Neck: Present: normal inspection, nontender, other - jvd Respiratory: Present: respiratory distress, accessory muscle use, decreased breath sounds, rales, rhonchi Cardiovascular/Chest: Present: tachycardia Gastrointestinal/Abdominal: Present: normal bowel sounds, nontender, nondistended, soft, no organomegaly Back Exam: Present: normal inspection, normal range of motion, no CVA tenderness, no vertebral tenderness Extremity Exam: Present: pedal edema Neurological Exam: Present: alert, oriented, normal mood/affect, no motor/sensory deficits Skin Exam: Present: normal color, warm/dry Lymphatic Exam: Present: no adenopathy Progress - Date and Time Seen: Date and Time: 10/22/19 12:24 condition unchanged, discussed case with dr mckeon , accepted for admission, patient remains a dnr - Results and Orders Patient's Lab Results:: I have reviewed the patient's lab results. - Vital Signs Patient's Vital Signs:: I have reviewed the patient's vital signs. Vital Signs: Vital Signs 10/22/19 09:09 10/22/19 09:26 10/22/19 09:31 Temperature 36.5 C Pulse Rate 101 H 100 100 Respiratory Rate 44 H 40 H Blood Pressure 156/62 H 161/80 H O2 Sat by Pulse Oximetry 77 L 94 10/22/19 09:36 10/22/19 09:41 Temperature Pulse Rate 99 98 Respiratory Rate 36 H Blood Pressure 161/80 H 158/86 H O2 Sat by Pulse Oximetry 94 - EKG EKG #1 EKG: NSR - X-Ray X-Ray #1 X-Ray: chest Interpretation: Discd w/ radiologist - congestive heart failure abdomen evidense of enteritis - Progress/Reassessment Chief Complaint: Dyspnea Plan - Plan Plan: to admit to hospital Departure Clinical Impression: CHF (congestive heart failure), Abdominal pain - Departure Disposition: Short Term Hospital Inpatient Condition: Serious Referrals: Denisse Barker MD [Primary Care Provider] -
[2019-10-22 09:59] LABS: ALT 33 U/L (19-67); AST 39 U/L (0-48); Albumin * 3.4 gm/dl (3.4-5.0); Alkaline Phosphatase * 95 U/L (50-170); Amylase * 67 U/L (25-115); Anion Gap 18.5 mmol/L (6.8-13.8); BUN/Creatinine Ratio 23.9 (9.0-21.6); Bilirubin, Total 0.9 mg/dL (0.0-1.1); Blood Urea Nitrogen 43 mg/dL (3-23); Ca. Corrected For Albumin 9.4 mg/dL (8.4-10.2); Calcium * 9.2 mg/dL (7.9-10.9); Carbon Dioxide 26.1 mmol/L (24-32.6); Chloride 107 mmol/L (97-106); Glucose * 108 mg/dL (70-110); Lipase 77 U/L (73-393); Potassium 3.6 mmol/L (3.4-4.6); Sodium 148 mmol/L (132-142); Total Protein 7.1 gm/dL (6.2-8.2)
[2019-10-22 10:04] LABS: Troponin I 0.402 ng/mL (0.00-0.10)
[2019-10-22 10:35] LABS: BNP * Greater than 35000 pg/mL (5-550)
[2019-10-22 11:53] LABS: Urine Appearance Slightly Cloudy (CLEAR); Urine Color Yellow
[2019-10-22 11:56] LABS: Urine Bilirubin Negative (NEGATIVE); Urine Blood 25 /ul (NEGATIVE); Urine Ketone Negative (NEGATIVE)
[2019-10-22 11:57] LABS: Urine Protein 30 mg/dL (NEGATIVE); Urine Urobilinogen Normal (NORMAL); Urine pH 5.5 pH (5.0-7.0)
[2019-10-22 11:58] LABS: Urine Bacteria TRACE; Urine Nitrite Negative (NEGATIVE); Urine RBC 0-5 /hpf (0-5); Urine WBC 0-5 /hpf (0-5)
[2019-10-22] MEDS ORDERED: MORPHINE SULFATE 2 MG/ML DISP.SYRIN IV ONE (11:59)
--- NOTE | 2019-10-22 14:32 | HP ---
Chief Complaint - Chief Complaint Date of Service: 10/22/19 Time of Service: 12:54 Chief Complaint: Shortness of breath History of Present Illness: 84-year-old female with a past medical history of congestive heart failure coronary artery disease, hypertension, hyperlipidemia, GERD, anterior wall CA, peripheral artery disease status post bilateral common artery stenting 2005, pulmonary hypertension, COPD, systolic congestive heart failure presents from the [place] with complaints of shortness of breath. She has not been taking her medications for the past 2 months because she felt she did not need to. The emergency department she was found to have hypoxia with an oxygen saturation of 77%, tachypnea with respiratory rate in the 30s and showed. Blood work is positive for hyponatremia 148, worsening renal function with GFR of 28, creatinine of 1.80, baseline creatinine is 1.2, baseline GFR is 45. She was also found to have a BNP of greater than 35,000 and troponin of 0.402 with no acute changes on EKG. ABG was positive for pH of 7.25, PCO2 39.1, PO2 83.1, bicarb of 16.9, O2 sat of 94.7. Chest x-ray is positive for acute congestive heart failure exacerbation, abdominal x-ray showed scattered air-fluid loops of large and small bowel with some scattered air-fluid levels no dilation of the small bowel overall findings probably represent viral enteritis, mild to moderate fecal retention. She is being admitted for CHF exacerbation. Patient is a DNR Medical History (Last Reviewed 10/22/19 @ 13:23 by Colleen Loving RN) Tobacco abuse (Chronic) Onset Date: 05/09/16 Systolic heart failure secondary to coronary artery disease (Chronic) Onset Date: 05/09/16 Pulmonary HTN (Chronic) Onset Date: 05/09/16 Severe per Cardiology. 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 Myocardial infarction of anterior wall (Chronic) Onset Date: 05/09/16 - PCI with RENNY to LAD anterior ST elevation CA Mild concentric left ventricular hypertrophy (LVH) (Chronic) Onset Date: 06/14/17 EF 34%, LA severely dilated, Bi-atrial enlargement, Rt atrium severely dilated, diastolic dysfunction, mild MR, RVSP 95 mm HG, Echo, FMCH 06/13/17 Hyperlipidemia (Chronic) Onset Date: Unknown GERD (gastroesophageal reflux disease) (Chronic) Onset Date: 05/09/16 Essential hypertension (Acute) Onset Date: 05/07/17 Ischemic cardiomyopathy (Chronic) Onset Date: Unknown Echo EF .40 CAD (coronary artery disease) (Chronic) Onset Date: 05/09/16 Cataract Onset Date: Unknown Closed left ankle fracture Onset Date: Unknown Closed left femoral fracture Onset Date: 09/29/12 Encopresis Onset Date: Unknown Fracture of left radius Onset Date: Unknown (alone), unspecified part, closed Urge incontinence Onset Date: Unknown Surgical History: Surgical History (Last Reviewed 10/22/19 @ 13:23 by Colleen Loving RN) Femoral oneil placement, left Onset Date: 09/30/12 Femoral-popliteal vascular bypass Onset Date: ~2005 Dr. Luz Hx of cardiac catheterization Onset Date: 09/25/14 Complex distal LAD occlusion s/p thrombolytic therapy, promus 2.5 x 16mm RENNY to mid-distal LAD with diffuse disease with DEMARCUS-II flow post-stent for salvage therapy, mildly elevated LVEDP. Hx of colonoscopy Onset Date: 05/18/07 Stent placement Onset Date: ~2005 Bilateral iliac stents Family History: Family History (Last Reviewed 10/22/19 @ 13:23 by Colleen Loving RN) Brother Heart valve surgery Father , Old age No problems noted. Mother , Old age No problems noted. Daughter Heart valve problem Social History: (Last Reviewed 10/22/19 @ 13:23 by Colleen Loving RN) Social History: Marital status: / lives independently: Yes current occupational status: retired Highest education level completed: high school graduate Service: No Tobacco: Smoking Status: Current every day smoker Alcohol: alcohol intake: current details: Some day - Occasionally wine Dietary Habits: caffeine: Yes caffeine comment: Every day Review Of Systems (GEN) - Review of Systems Generalized/Overall Review: Absent: Fever EENTM: Absent: Eye Pain Respiratory: Present: Shortness of Breath. Absent: Cough Cardiac: Present: Edema. Absent: Chest Pain Abdominal: Present: Abdominal Pain - Throughout entire abdomen Misc: All systems neg except as marked Immunizations: IMMUNIZATION HX Immunizations Up to Date No History of Influenza Vaccine No Hx Pneumococcal Vaccination No Allergies/Adverse Reactions: Allergies Allergy/AdvReac Type Severity Reaction Status Date / Time No Known Allergies Allergy Verified 10/22/19 13:23 Home Medications: HOME MEDICATIONS Albuterol Sulfate [Proair Hfa] 1 - 2 puff INHALATION Q4H PRN 06/12/17 [Last Taken Unknown] mineral oil-hydrophil petrolat 1 applic TP BID #50 g 05/09/18 [Last Taken Unknown] triamcinolone acetonide 0.1 % topical ointment 1 applic TP BID #430 g 05/09/18 [Last Taken Unknown] furosemide 20 mg tablet 20 mg PO DAILY #30 tab 05/02/19 [Last Taken Unknown] aspirin 81 mg tablet,delayed release 81 mg PO DAILY #30 tab 05/22/19 [Last Taken Unknown] cholecalciferol (vitamin D3) 50 mcg (2,000 unit) capsule 2,000 unit PO DAILY #30 cap 05/22/19 [Last Taken Unknown] Lisinopril [Prinivil] 10 mg PO DAILY 10/22/19 [Last Taken Unknown] Spironolactone [Aldactone] 25 mg PO DAILY 10/22/19 [Last Taken Unknown] Exam - Exam Vital Signs: Vital Signs - Last Taken Temp 36.1 C 10/22/19 13:11 Pulse 91 10/22/19 13:11 Resp 22 H 10/22/19 13:11 BP 140/74 10/22/19 13:11 Pulse Ox 95 10/22/19 13:11 Constitutional: Present: Alert, Cooperative, Elderly, Thin and frail ENT Exam: Present: hearing grossly normal Eye Exam: bilateral eye: normal inspection, EOMI Neck: Present: non-tender, supple. Absent: lymphadenopathy (R), lymphadenopathy (L) Back Exam: Present: normal inspection, no CVA tenderness Respiratory: Present: no respiratory distress, no accessory muscle use, crackles - Mild crackles in the left lung base, No wheezing Cardiovascular/Chest: Present: normal peripheral pulses, regular rate, rhythm, no murmur, edema - 2+ bilateral lower extremity pitting edema, left worse than right Peripheral Pulses: dorsalis-pedis (R): 1+, dorsalis-pedis (L): 1+ Abdomen: Present: Normal bowel sounds, soft, tender - Diffuse tenderness in all quadrants, distended Extremity: Present: lower extremity edema - 2+ bilateral lower extremity pitting edema, left worse than right Skin Exam: Present: normal color, warm/dry - Right lower extremity is warm to touch, cool/dry - Left lower extremity is cool to touch Neurologic: Present: alert, normal mood/affect Appearance: Present: appropriate appearance Eye contact: Present: cooperative Thoughts: Present: normal mood /affect Diagnostic Studies: Abnormal Lab Results 10/22/19 10/22/19 10/22/19 Range/Units 09:36 09:36 09:50 WBC 16.0 H (4.0-10.5) K/mm3 MCHC 30.7 L (32-36) g/dl RDW 15.9 H (11.5-14.0) % Plt Count 130 L (150-450) K/mm3 Immature Gran # (Auto) 0.06 H (0.000-0.0310) K/mm3 Neutrophils % 89.8 H (42-75.0) % Lymphocytes % 1.6 L (20-51) % Neutrophils # 14.4 H (1.3-6.0) K/mm3 Lymphocytes # 0.25 L (1.5-3.5) k/mm3 Monocytes # 1.3 H (0.0-1.0) k/mm3 HCO3 16.9 L (21.0-28.0) mmol/L Total CO2 18.1 L (19.0-24.0) mmol/L Base Excess -9.6 L (-2.0-3.0) mmol/L ABG pH 7.25 L (7.35-7.45) Sodium 148 H (132-142) mmol/L Plasma Sodium 148 H (130-142) mmol/L Chloride 107 H (97-106) mmol/L Anion Gap 18.5 H (6.8-13.8) mmol/L BUN 43 H (3-23) mg/dL Creatinine 1.80 H D (0.4-1.4) mg/dL Est GFR (Non-Af Amer) 28 L D (60-130) mL/min BUN/Creatinine Ratio 23.9 H (9.0-21.6) Troponin I 0.402 H* (0.00-0.10) ng/mL B-Natriuretic Peptide Greater than 22381 H (5-550) pg/mL Urine Protein (NEGATIVE) mg/dL Urine Blood (NEGATIVE) /ul 10/22/19 Range/Units 11:42 WBC (4.0-10.5) K/mm3 MCHC (32-36) g/dl RDW (11.5-14.0) % Plt Count (150-450) K/mm3 Immature Gran # (Auto) (0.000-0.0310) K/mm3 Neutrophils % (42-75.0) % Lymphocytes % (20-51) % Neutrophils # (1.3-6.0) K/mm3 Lymphocytes # (1.5-3.5) k/mm3 Monocytes # (0.0-1.0) k/mm3 HCO3 (21.0-28.0) mmol/L Total CO2 (19.0-24.0) mmol/L Base Excess (-2.0-3.0) mmol/L ABG pH (7.35-7.45) Sodium (132-142) mmol/L Plasma Sodium (130-142) mmol/L Chloride (97-106) mmol/L Anion Gap (6.8-13.8) mmol/L BUN (3-23) mg/dL Creatinine (0.4-1.4) mg/dL Est GFR (Non-Af Amer) (60-130) mL/min BUN/Creatinine Ratio (9.0-21.6) Troponin I (0.00-0.10) ng/mL B-Natriuretic Peptide (5-550) pg/mL Urine Protein 30 H (NEGATIVE) mg/dL Urine Blood 25 H (NEGATIVE) /ul Laboratory Results WBC 16.0 K/mm3 (4.0-10.5) H 10/22/19 09:36 RBC 4.96 M/mm3 (4.2-5.4) 10/22/19 09:36 Hgb 14.2 gm/dL (12.5-16.0) 10/22/19 09:36 Hct 46.2 % (37.0-47.0) 10/22/19 09:36 MCV 93.1 fl (78-100) 10/22/19 09:36 MCH 28.6 pg (27-31) 10/22/19 09:36 MCHC 30.7 g/dl (32-36) L 10/22/19 09:36 RDW 15.9 % (11.5-14.0) H 10/22/19 09:36 Plt Count 130 K/mm3 (150-450) L 10/22/19 09:36 MPV 11.4 fl (8-12.5) 10/22/19 09:36 Immature Gran % (Auto) 0.40 % (0.001-0.429) 10/22/19 09:36 Immature Gran # (Auto) 0.06 K/mm3 (0.000-0.0310) H 10/22/19 09:36 Neutrophils % 89.8 % (42-75.0) H 10/22/19 09:36 Lymphocytes % 1.6 % (20-51) L 10/22/19 09:36 Monocytes % 8.0 % (0.0-9) 10/22/19 09:36 Eosinophils % 0.0 % (0.0-3.0) 10/22/19 09:36 Basophils % 0.2 % (0.0-1.0) 10/22/19 09:36 Nucleated RBC % 0.0 k/mm3 (0-1) 10/22/19 09:36 Neutrophils # 14.4 K/mm3 (1.3-6.0) H 10/22/19 09:36 Lymphocytes # 0.25 k/mm3 (1.5-3.5) L 10/22/19 09:36 Monocytes # 1.3 k/mm3 (0.0-1.0) H 10/22/19 09:36 Eosinophils # 0.0 k/mm3 (0.0-0.7) 10/22/19 09:36 Absolute Basophils 0.0 k/mm3 (0.0-0.1) 10/22/19 09:36 pCO2 39.1 mmHg (32.0-45.0) 10/22/19 09:50 pO2 83.1 mmHg (83.0-108.0) 10/22/19 09:50 HCO3 16.9 mmol/L (21.0-28.0) L 10/22/19 09:50 Total CO2 18.1 mmol/L (19.0-24.0) L 10/22/19 09:50 Base Excess -9.6 mmol/L (-2.0-3.0) L 10/22/19 09:50 ABG pH 7.25 (7.35-7.45) L 10/22/19 09:50 ABG O2 Sat (Measured) 94.7 % (94.0-98.0) 10/22/19 09:50 Sodium 148 mmol/L (132-142) H 10/22/19 09:36 Plasma Sodium 148 mmol/L (130-142) H 10/22/19 09:36 Potassium 3.6 mmol/L (3.4-4.6) 10/22/19 09:36 Chloride 107 mmol/L (97-106) H 10/22/19 09:36 Carbon Dioxide 26.1 mmol/L (24-32.6) 10/22/19 09:36 Anion Gap 18.5 mmol/L (6.8-13.8) H 10/22/19 09:36 BUN 43 mg/dL (3-23) H 10/22/19 09:36 Creatinine 1.80 mg/dL (0.4-1.4) H D 10/22/19 09:36 Est GFR (Non-Af Amer) 28 mL/min (60-130) L D 10/22/19 09:36 BUN/Creatinine Ratio 23.9 (9.0-21.6) H 10/22/19 09:36 Random Glucose 108 mg/dL (70-110) 10/22/19 09:36 Calcium 9.2 mg/dL (7.9-10.9) 10/22/19 09:36 Calcium Adj for Albumin 9.4 mg/dL (8.4-10.2) 10/22/19 09:36 Total Bilirubin 0.9 mg/dL (0.0-1.1) 10/22/19 09:36 AST 39 U/L (0-48) 10/22/19 09:36 ALT 33 U/L (19-67) 10/22/19 09:36 Alkaline Phosphatase 95 U/L (50-170) 10/22/19 09:36 Troponin I 0.402 ng/mL (0.00-0.10) H* 10/22/19 09:36 B-Natriuretic Peptide Greater than 53594 pg/mL (5-550) H 10/22/19 09:36 Total Protein 7.1 gm/dL (6.2-8.2) 10/22/19 09:36 Albumin 3.4 gm/dl (3.4-5.0) 10/22/19 09:36 Amylase 67 U/L (25-115) 10/22/19 09:36 Lipase 77 U/L (73-393) 10/22/19 09:36 Urine Color Yellow 10/22/19 11:42 Urine Appearance Slightly cloudy (CLEAR) 10/22/19 11:42 Urine pH 5.5 pH (5.0-7.0) 10/22/19 11:42 Ur Specific [place] 1.020 SP.GR. (1.005-1.010) 10/22/19 11:42 Urine Protein 30 mg/dL (NEGATIVE) H 10/22/19 11:42 Urine Glucose (UA) Negative mg/dL (NEGATIVE) 10/22/19 11:42 Urine Ketones Negative mg/dL (NEGATIVE) 10/22/19 11:42 Urine Blood 25 /ul (NEGATIVE) H 10/22/19 11:42 Urine Nitrate Negative (NEGATIVE) 10/22/19 11:42 Urine Bilirubin Negative mg/dl (NEGATIVE) 10/22/19 11:42 Prot Sulfosalicylic Acd 1+ mg/dL (0) 10/22/19 11:42 Urine Urobilinogen Normal EU/dl (NORMAL) 10/22/19 11:42 Ur Leukocyte Esterase Negative /ul (NEGATIVE) 10/22/19 11:42 Urine RBC 0-5 /hpf (0-5) 10/22/19 11:42 Urine WBC 0-5 /hpf (0-5) 10/22/19 11:42 Ur Epithelial Cells 0-5 /hpf (0-5) 10/22/19 11:42 Urine Bacteria Trace (NONE) 10/22/19 11:42 Urine Culture Comments Culture to follow 10/22/19 11:42 Assessment/Plan - Narrative Narrative: 84-year-old female with a past medical history of congestive heart failure coronary artery disease, hypertension, hyperlipidemia, GERD, anterior wall CA, peripheral artery disease status post bilateral common artery stenting 2005, pulmonary hypertension, COPD, systolic congestive heart failure presents from the [place] with complaints of shortness of breath. She has not been taking her medications for the past 2 months because she felt she did not need to. The emergency department she was found to have hypoxia with an oxygen saturation of 77%, tachypnea with respiratory rate in the 30s and showed. Blood work is positive for hyponatremia 148, worsening renal function with GFR of 28, creatinine of 1.80, baseline creatinine is 1.2, baseline GFR is 45. She was also found to have a BNP of greater than 35,000 and troponin of 0.402 with no acute changes on EKG. ABG was positive for pH of 7.25, PCO2 39.1, PO2 83.1, bicarb of 16.9, O2 sat of 94.7. Chest x-ray is positive for acute congestive heart failure exacerbation, abdominal x-ray showed scattered air-fluid loops of large and small bowel with some scattered air-fluid levels no dilation of the small bowel overall findings probably represent viral enteritis, mild to moderate fecal retention. She is being admitted for CHF exacerbation. Patient is a DNR Plan #1 continue with Lasix 20 mg twice a day, strict I's and O's #2 resume home medications #3 DVT prophylaxis with subcu heparin #4 CBC and CMP in the morning #5 encourage oral intake #6 If her sodium remains elevated I will start her on D5 half-normal saline tomorrow. #7 wean off of oxygen as tolerated, goal O2 sat is greater than 90%. - Assessment/Plan (1) Acute exacerbation of congestive heart failure Problem: Acute Qualifiers: Heart failure type: systolic Qualified Code(s): I50.23 - Acute on chronic systolic (congestive) heart failure (2) Hypernatremia Problem: Acute (3) Hypoxia Problem: Acute (4) Constipation Problem: Acute Qualifiers: Constipation type: unspecified constipation type Qualified Code(s): K59.00 - Constipation, unspecified (5) Abdominal pain Problem: Acute (6) CKD (chronic kidney disease) stage 3, GFR 30-59 ml/min Problem: Chronic (7) Pulmonary HTN Problem: Chronic (8) PAD (peripheral artery disease) Problem: Chronic (9) Hyperlipidemia Problem: Chronic Qualifiers: (10) Essential hypertension Problem: Acute (11) Peripheral vascular disease of lower extremity Problem: Acute
[2019-10-22] MEDS ORDERED: POLYETHYLENE GLYCOL 3350 17 GM PACKET PO PRN (14:39)
[2019-10-22] MEDS ORDERED: ACETAMINOPHEN 325 MG TABLET PO PRN (14:41)
[2019-10-22] MEDS ORDERED: ENOXAPARIN SODIUM 40 MG/0.4 ML SYRG SC SCH (14:45)
[2019-10-22] MEDS ORDERED: SPIRONOLACTONE 25 MG TABLET PO SCH (14:45)
[2019-10-22] MEDS ORDERED: BISACODYL 5 MG TABLET.DR PO SCH (14:45)
[2019-10-22] MEDS: SENNOSIDES/DOCUSATE SODIUM 1 TAB TABLET PO SCH ×2 (15:40→20:11)
[2019-10-22] MEDS ORDERED: MINERAL OIL/PETROLATUM,WHITE 454 APPL JAR TP SCH (21:00)
[2019-10-22] MEDS ORDERED: TRIAMCINOLONE ACETONIDE 15 APPL TUBE TP SCH (21:00)
[2019-10-22] MEDS ORDERED: FUROSEMIDE 10 MG/ML VIAL IV SCH (21:00)
[2019-10-23] MEDS ORDERED: ACETAMINOPHEN 325 MG TABLET PO ONE (01:17)
[2019-10-23] MEDS ORDERED: KETOROLAC TROMETHAMINE 15 MG/ML VIAL IV ONE (02:33)
[2019-10-23] MEDS ORDERED: NOREPINEPHRINE BITARTRATE 4 MG in DEXTROSE 5 % IN WATER 496 ML IV PRN ×2 (02:57)
[2019-10-23] MEDS ORDERED: metroNIDAZOLE/SODIUM CHLORIDE 500 MG/100 ML BAG IV SCH (04:00)
--- NOTE | 2019-10-23 04:12 | PN ---
Progess Note - Interim Date: 10/23/19 Time: 03:46 Narrative: 10/23/19 03:47 I was notified by nursing staff around 2 am that the patient complained of increasing abdominal pain and distention despite being given multiple treatments to address her constipation. Patient has an extensive history with chronic constipation most likely due to stool retention. I ordered that the previously ordered Tylenol be administered to patient but she complained that the effects are only minimal and she would like something stronger. Patient was treated with iv Morphine while in the ER befor admission but the admitting physician/PCP ordered that opiods be avoided in order to avoid worsening of the constipation. Therefore, Toradol was ordered for pain. Shortly after the first call, the patient became pale, tachypneic, and BP started dropping. I ordered Troponin and lactic acid be drawn stat and both were elevated, EKG was also ordered to rule out any acute changes although EKG done in ER had NSR. Px has a history of previous [place], CAD, and CHF however given her acute condition, it cannot be determined at the moment if these abnormal lab levels are due to new cardiac ischemia or acute illness such as sepsis due to bowel ischemia or bowel obstruction. Px denies chest pain, as normal O2 sat, and has regained normal blood pressure. Abdominal ct was ordered to rule out obstructiion. ABG had normal PH which ruled out acidosis, normal PO2, but resp. alk. As a precaution, we will transfer her to SCU for close monitoring and order surgical consult if abdominal ct demostrate obstruction. NG tube wlll be placed to decompress the patient's abdomen. I also started the px on IV antiobiotics to cover for possible intrabdominal infection given leukocytosis and elevated lactic acid on labs.
[2019-10-23 06:06] VITALS: BP 0/0
[2019-10-23] MEDS ORDERED: LISINOPRIL 10 MG TABLET PO SCH (09:00)
[2019-10-23] MEDS ORDERED: CHOLECALCIFEROL 1,000 UNIT CAPSULE PO SCH (09:00)
[2019-10-23] MEDS ORDERED: ASPIRIN 81 MG TABLET.DR PO SCH (09:00)
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
== END 2019-10-23 03:50 | disposition expired | DRG 291 ==
LOC: ER 09:00 → MS 12:24 → SCU 10-23 02:50
PROVIDERS: ADMIT Internal Medicine; ATTEND Internal Medicine
DX: N18.3 Chronic kidney disease, stage 3 (moderate); I73.9 Peripheral vascular disease, unspecified; I13.0 Hypertensive heart and chronic kidney disease with heart failure and stage 1 through stage 4 chronic kidney disease, or unspecified chronic kidney disease; F17.210 Nicotine dependence, cigarettes, uncomplicated; K59.00 Constipation, unspecified; A41.9 Sepsis, unspecified organism; J44.9 Chronic obstructive pulmonary disease, unspecified; E87.0 Hyperosmolality and hypernatremia; I50.23 Acute on chronic systolic (congestive) heart failure
CPT/HCPCS: 36415; 36600; 71010; 71045; 74019; 74020; 80053; 81001; 82150; 82803; 83519; 83605; 83690; 83880; 84484; 85025; 87040; 87081; 87086; 93005; 94760; 96374; 99285